=== PATIENT | female | born 1955 | race Caucasian/White ===

== ENCOUNTER 2017-08-03 02:56 | Emergency (ER) | payer OTHER ==
[~2017-08-03] VITALS: Ht 157.5 cm; Wt 92.0 kg
[~2017-08-03 02:56] MED LIST: ALBU6.7H INH; ALBU8I INH; BENZ100 PO; CITA20 PO; LEVO100T4 PO; LOTR10CA PO; PRED20 PO; SIMV10 PO; [UNRECOGNIZED DRUG - CODE] PO
[2017-08-03 03:00] VITALS: BP 173/72; PULSE 90; RESP 24; TEMP 98.2; O2SAT 94
[2017-08-03] MEDS: RESP: ALBUTEROL 2.5 MG/IPRATROPIUM 0.5 MG NEB (SCH) INH ×3 (03:08→03:29)
[2017-08-03 03:10] VITALS: BP 165/73; PULSE 93; RESP 24; O2SAT 95
[2017-08-03] MEDS ORDERED: predniSONE 20 MG TAB PO ONE (03:15)
[2017-08-03] MEDS ORDERED: LOTR10CA PO (03:30)
[2017-08-03] MEDS ORDERED: CETI10CH CHEW (03:30)
[2017-08-03] MEDS ORDERED: CELE20TA PO (03:30)
[2017-08-03] MEDS ORDERED: ALBU6.7H INH (03:30)
[2017-08-03] MEDS ORDERED: MONT10TA2 PO (03:30)
[2017-08-03] MEDS ORDERED: FLUT1SPR5 EACH NARE (03:30)
[2017-08-03] MEDS ORDERED: LEVO112T2 PO (03:30)
[2017-08-03] MEDS ORDERED: SIMV20TA PO (03:30)
[2017-08-03] MEDS ORDERED: REST0.05 EACH EYE (03:30)
[2017-08-03] MEDS ORDERED: PRED50 PO (03:33)
--- NOTE | 2017-08-03 03:46 | PD ---
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 For the past 2 days she has had a cough and nasal congestion. The floors were wax tonight and this aggravated her condition. She does have a history of asthma. She denies any fever. She does not have a history of diabetes. PFSH Past Medical History Asthma: Yes Anxiety: Yes High Cholesterol: Yes Diminished Hearing: No Hypertension: Yes Respiratory: Yes (RECURRENT BRONCHIAL ASTHMA) ?: Not : 2 Para: 2 Past Surgical History Eye Surgery: Yes (BILAT CATARACT, RIGHT RETINAL DETACHMENT X2) Social History Alcohol Use: Yes ([facility]) Tobacco Use: No (QUIT 1985) Substance Use: No Allergies-Medications (Allergen,Severity, Reaction): Coded Allergies: Sulfa (Sulfonamide Antibiotics) (Unverified Allergy, Severe, 05/27/17) Reported Meds & Prescriptions Reported Meds & Active Scripts Active Prednisone 50 Mg Tab 50 Mg PO BID PRN Reported Restasis Opth 0.05% (Cyclosporine Opth 0.05%) 0.05% Emul 1 Drop EACH EYE BID Singulair (Montelukast Sodium) 10 Mg Tab 10 Mg PO HS Proventil Hfa 6.7 GM Inh (Albuterol Sulfate) 90 Mcg/Act Aer 2 Puff INH Q6H PRN Flonase Nasal [place] (Fluticasone Nasal [place]) 50 Mcg/Act [place] 50 Mcg EACH NARE BID Cetirizine (Cetirizine HCl) 10 Mg Chew 10 Mg CHEW DAILY Celexa (Citalopram Hydrobromide) 20 Mg Tab 20 Mg PO DAILY Lotrel (Amlodipine-Benazepril) 10-20 Mg Cap 1 Cap PO DAILY Simvastatin 20 Mg Tab 20 Mg PO DAILY Levothyroxine (Levothyroxine Sodium) 112 Mcg Tab 112 Mcg PO DAILY Review of Systems Except as stated in HPI: all other systems reviewed are Neg Physical Exam Narrative GENERAL: The patient is alert, oriented 3 in no respirator distress. Her vital signs show blood pressure 173/72 with oximetry 94% but otherwise normal. Repeat oximetries are 97 and 95%. SKIN: Focused skin assessment warm/dry. HEAD: Atraumatic. Normocephalic. EYES: Pupils equal and round. No scleral icterus. No injection or drainage. ENT: No nasal bleeding or discharge. Mucous membranes pink and moist. NECK: Trachea midline. No JVD. CARDIOVASCULAR: Regular rate and rhythm. No murmur appreciated. RESPIRATORY: No accessory muscle use. Clear to auscultation. Breath sounds equal bilaterally. GASTROINTESTINAL: Abdomen soft, non-tender, nondistended. Hepatic and splenic margins not palpable. MUSCULOSKELETAL: No obvious deformities. No clubbing. No cyanosis. No edema. NEUROLOGICAL: Awake and alert. No obvious cranial nerve deficits. Motor grossly within normal limits. Normal speech. PSYCHIATRIC: Appropriate mood and affect; insight and judgment normal. Data Data Last Documented VS Vital Signs Date Time Temp Pulse Resp B/P (MAP) Pulse Ox O2 Delivery O2 Flow Rate FiO2 08/03/17 04:03 90 22 144/72 (96) 97 08/03/17 03:10 Nasal Cannula 08/03/17 03:05 2.00 08/03/17 03:00 98.2 Orders Orders Prednisone (Deltasone) (08/03/17 03:15) Ecg Monitoring (08/03/17 03:03) Oximetry (08/03/17 03:03) Albuterol-Ipratropium Neb (Duoneb Neb) (08/03/17 03:15) Ed Discharge Order (08/03/17 03:46) [facility] Medical Decision Making Medical Screen Exam Complete: Yes Emergency Medical Condition: Yes Medical Record Reviewed: Yes Differential Diagnosis Acute asthma, bronchitis, viral upper respiratory infection, pneumonia-unlikely Narrative Course The patient likely has a viral upper respiratory infection with a bronchospastic /asthma component. She did get some relief with the DuoNeb treatments. She will be put on prednisone, 50 mg twice daily for 4 days followed by 50 mg daily for 4 days. Most her symptoms however are upper airway symptoms with rhinorrhea , cough. Diagnosis Primary Impression: Viral upper respiratory infection Additional Impression: Asthma Additional Instructions: The prednisone is taken one tablet twice daily for 4 days followed by one tablet once daily for 4 days. Med/Other Pt SpecificInfo: Prescription(s) given Scripts Prednisone (Prednisone) 50 Mg Tab 50 MG PO BID Y for 4 days than 1 daily X 4 days, #12 TAB 0 Refills Prov: Hilario Bonilla MD 08/03/17 Disposition: 01 DISCHARGE HOME Condition: Stable Hilario Bonilla MD Aug 03, 2017 03:45
[2017-08-03 04:03] VITALS: BP 144/72
== END 2017-08-03 04:06 | disposition home or self-care (01) ==
LOC: PHED 02:56
DX: J06.9 Acute upper respiratory infection, unspecified (principal); J45.909 Unspecified asthma, uncomplicated; Z87.891 Personal history of nicotine dependence
CPT/HCPCS: 94640; 94664; 99285; J7512